=== PATIENT | male | born 1940 | race Caucasian/White ===

== ENCOUNTER → 2016-09-05 | Outpatient (CLI) | payer MEDICARE ==
[~2016-09-05] MED LIST: FISH OIL 1,0001 EACH PO; GENICIN500 MG PO; GLUCOPHAGE XR500 MG PO; HALFPRIN81 MG PO; HYDROCHLOROTHIA25 MG PO; INVOKANA300 MG PO; JANUVIA100 MG PO; LOTENSIN20 MG PO; NORVASC10 MG PO; TOPROL XL25 MG PO; VIAGRA50 MG PO; XALATAN 0.005%2.5 ML EYEBOTH; ZOCOR20 MG PO; [UNRECOGNIZED DRUG - SUPPLY] SL
== END | disposition short-term general hospital (02) ==
LOC: CLUROL 13:22
DX: C61 Malignant neoplasm of prostate (principal); N52.9 Male erectile dysfunction, unspecified